=== PATIENT | female | born 1980 | race Caucasian/White ===

== ENCOUNTER 2017-01-06 14:19 | Emergency (ER) | payer OTHER ==
[2017-01-06 14:28] VITALS: BP 118/79
--- NOTE | 2017-01-06 14:39 | UC ---
Complaint Female HPI - HPI Summary HPI Summary: vag bleeding since last pm 01/05/17 after having her Mirena removed 01/03/17 by [facility] (who had placed it) because pt states she would like to become with her current partner. Pt states she has RLQ abd pain, and also is using a "tampon an hour" for the bleeding. Pt's partner is worried about possible infection. No urinary sxs. In addition pt has cough and nasal congestion and thinks she may have a sinus infection. 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 SO Hx Last Menstrual Period: unknown, IUD ?: No Onset/Duration: Sudden Onset, Lasting Hours, Still Present Severity Initially: Moderate Severity Currently: Severe Pain Intensity: 8 Pain Scale Used: 0-10 Numeric Character: Sharp Aggravating Factor(s): Nothing Alleviating Factor(s): Nothing Associated Signs And Symptoms: Positive: Vaginal Bleeding/Discharge - Allergies/Home Medications Allergies/Adverse Reactions: Allergies Allergy/AdvReac Type Severity Reaction Status Date / Time Amoxicillin Allergy Intermediate Hives Verified 01/06/17 14:28 Home Medications: Home Medications Fenofibrate [Lofibra] 160 mg PO DAILY 01/06/17 [History Confirmed 01/06/17] Prazosin CAP* [Minipress CAP*] 5 mg PO BEDTIME 01/06/17 [History Confirmed 01/06] Venlafaxine EXT RELEASE CAP* [Effexor Xr CAP*] 225 mg PO DAILY 01/06/17 [ History Confirmed 01/06/17] PMH/Surg Hx/FS Hx/Imm Hx Previously Healthy: Yes Endocrine History Of: Denies: Diabetes, Thyroid Disease, Hyperthyroidism, Hypothyroidism, Dyslipidemia Cardiovascular History Of: Denies: Cardiac Disorders, Hypertension, Pacemaker/ICD, Myocardial Infarction , Congestive Heart Failure, Atrial Fibrillation, Deep Vein Thrombosis, Bleeding Disorders Respiratory History Of: Denies: COPD, Asthma, Bronchitis, Pneumonia, Pulmonary Embolism GI/ History Of: Denies: Gastroesophageal Reflux, Ulcer, Gastrointestinal Bleed, Gall Bladder Disease, Kidney Stones, Diverticulitis, Renal Disease, Urosepsis Neurological History Of: Denies: TIA, CVA, Dementia, Seizures, Migraine Psychological History Of: Denies: Anxiety, Depression, Bipolar Disorder, Schizophrenia, Post Traumatic Stress Disorder Cancer History Of: Denies: Lung Cancer, Colorectal Cancer, Breast Cancer, Prostate Cancer, Cervical Cancer Other History Of: Negative For: HIV, Hepatitis B, Hepatitis C, Anticoagulant Therapy - Surgical History Surgical History: None - Family History Known Family History: Positive: Hypertension, Other - no PMH of bleeding disorders Family History: no family history of cardiac or clotting or genetic disorders - Social History Alcohol Use: None Substance Use Type: None Smoking Status (MU): Heavy Every Day Tobacco Smoker Type: Cigarettes Amount Used/How Often: 1 1/2 pack daily Have You Smoked in the Last Year: Yes Household Exposure Type: Cigarettes Review of Systems Constitutional: Negative Skin: Negative Eyes: Negative ENT: Negative Respiratory: Negative Cardiovascular: Negative Gastrointestinal: Negative Genitourinary: Other - vag bleeding Motor: Negative Neurovascular: Negative Musculoskeletal: Negative Neurological: Negative Psychological: Negative All Other Systems Reviewed And Are Negative: Yes Physical Exam Triage Information Reviewed: Yes Appearance: Well-Appearing, Pain Distress, Thin Vital Signs: Initial Vital Signs Temp 98.7 F 01/06/17 14:23 Pulse 97 01/06/17 14:23 Resp 16 01/06/17 14:23 BP 118/79 01/06/17 14:23 Pulse Ox 98 01/06/17 14:23 Vital Signs Reviewed: Yes Eyes: Positive: Conjunctiva Clear ENT: Positive: Normal ENT inspection, Pharyngeal erythema Neck: Positive: Supple Respiratory: Positive: Lungs clear, Normal breath sounds, No respiratory distress Cardiovascular: Positive: RRR, No Murmur, Pulses Normal, Brisk Capillary Refill Abdomen Description: Positive: No Organomegaly, Soft, McBurney's Point Tenderness. Negative: Nontender, Bruit, Distended, Guarding, Peritoneal Signs Bowel Sounds: Positive: Present Musculoskeletal: Positive: Strength Intact, ROM Intact Psychological Exam: Normal Skin Exam: Normal Complaint Female Dx - Course Course Of Treatment: Pt with abd pain and vag bleeding s/p mirena removal on . Pt needs higher level of care to determine cause of bleeding and pain. Pt and partner agree to go to [facility] by private car and sign AMA form. - Differential Dx/Diagnosis Differential Diagnosis/HQI/PQRI: Cervicitis, Pelvic Inflammatory Disease, , Sexually Transmitted Disease, Other - dysfunctional uterine bleeding Provider Diagnoses: vaginal bleeding s/p Mirena removal. acute cough Discharge - Discharge Plan Condition: Stable Disposition: AGAINST MEDICAL ADVICE Discharge Disposition Comment: discussed with Dr. Archibald [facility], accepts pt
== END 2017-01-06 15:15 | disposition left against medical advice (07) ==
LOC: UCCORT 14:19
DX: N93.9 Abnormal uterine and vaginal bleeding, unspecified (principal); R05 Cough
CPT/HCPCS: 99213; G0463

== ENCOUNTER 2018-05-12 12:44 | Emergency (ER) | payer OTHER ==
--- OUTSIDE RECORDS SUMMARY | 2018-05-12 12:59 | XMS REPORT | Continuity of Care Document ---
:1980 External Reference #:[id number] Author Name Aydee Esquivel, JASON Address [address] [place] [id number] Care Team Providers Name Role Phone Rosa May PA Primary Care Physician Unavailable Payers Type Date Identification Numbers Payment Provider Subscriber Effective: Policy Number: [id number] [facility] TARSHA Monaco 2018 PayID: [id number] [address] [place] [address] Policy Number: [id number] Medicaid -Jacobus Alyse Monaco PayID: [id number] [address] [place] [address] Advance Directives Description No Information Available Problems Description No Active Problems Family History Date Family Member(s) Problem(s) Comments Father Alive Father No Current Problems Mother Alive Mother No Current Problems Social History Type Date Description Comments Sex Female Education Highest level completed, 12th grade Marital Status Legal Status: Tobacco Use Start: Unknown Never Smoked Cigars Tobacco Use Start: Unknown Never Smoked A Pipe Tobacco Use Start: Unknown Never Used Smokeless Tobacco ETOH Use Denies alcohol use Tobacco Use Start: Unknown Heavy tobacco smoker (more than 10 cigarettes/day) Recreational Drug Use Denies Drug Use only marijuana Recreational Drug Use Teaching provided regarding Naloxone/Narcan Training Available At [facility] Tattoo/Piercing Tattoos professionally done UNKNOWN Never E-Cigarette user Allergies, Adverse Reactions, Alerts Date Description Reaction Status Severity Comments 05/09/2018 Amoxicillin Active Medications Medication Date Status Form Strength Qnty SIG Indications Ordering Provider Flagyl 05/09/20 Active Tablets 500mg 4tabs four tabs A59.01 Aydee Bustillo 18 by mouth Alvin, x 1 dose 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 05/09/2018 [facility] WBC Smear few Clue Cells Vag Fluid Wet Prep 0 Beth Wet Prep 0 Lactobacillus Wet Prep few Whiff Wet Prep + Bacteria Wet Prep n/a PH Wet Prep 7.5 Misc Other Test motile trich se Laboratory test finding 05/09/2018 [facility] Trichomonas positive Procedures Description No Information Available Encounters Description No Information Available Plan of Treatment 05/09/2018 - Aydee Esquivel, NPA59.01 Trichomonal vulvovaginitisNew Medication: Flagyl 500 mg - four tabs by mouth x 1 doseComments:You have an infection call trichomonas. Take the antibiotics ( metronidazole) that were sent to the pharmacy for you today. No ETOH with abx. Instruct all partner in the last month to make an appointment for evaluation. Abstain from ic for at least one week after you and partners are treated. Use condoms consistently to prevent STDs.Follow up:prn any concerns. Otherwise f/u with you PCP when annual is due.Z30.09 Encounter for other general counseling and advice on contracComments: Discussion regarding contraception choices. Patient is not interested in starting any bc today.She states that she would be happy to become . Reviewed with patient that she is at risk of and should avoid tobacco , alcohol and drugs. Instructed her to start a daily vitamin with folic acid.Z11.3 Encounter for screening for infections with a predominantlyComments: Reviewed STD risks and prevention with patient. Patient states understanding.
[2018-05-12 13:35] VITALS: BP 125/78
--- NOTE | 2018-05-12 14:42 | UC ---
Neck Pain HPI - HPI Summary HPI Summary: C/O possible thyroid enlargement since last week. With some pain. [place] feverish yesterday. Sore throat and cough with congestion. Some sinus pain. - History of Current Complaint Chief Complaint: UCGeneralIllness Stated Complaint: LUMP LEFT SIDE THROAT,COUGH Time Seen by Provider: 05/12/18 14:33 Hx Obtained From: Patient Hx Last Menstrual Period: 05/07/18 ?: No Onset/Duration Of Injury/Symptoms: Weeks - 1 Mechanism Of Injury: No Known Trauma Timing: Constant Onset/Duration: Gradual Onset Severity: Moderate Pain Intensity: 8 Location: Discrete At: - left anterior cervical triangle. Character: Sharp Aggravating Factors: Other: - Swollowing and eating. Alleviating Factors: Nothing Associated Signs & Symptoms: Positive: Swelling, Fever - Allergies/Home Medications Allergies/Adverse Reactions: Allergies Allergy/AdvReac Type Severity Reaction Status Date / Time amoxicillin Allergy Hives Verified 05/12/18 13:31 PMH/Surg Hx/FS Hx/Imm Hx Neurological History: Migraine Other History Of: Negative For: HIV, Hepatitis B, Hepatitis C, Anticoagulant Therapy - Surgical History Surgical History: None - Family History Known Family History: Positive: Hypertension, Other - no PMH of bleeding disorders Negative: Diabetes Family History: no family history of cardiac or clotting or genetic disorders - Social History Occupation: Employed Full-time Lives: With Family Alcohol Use: None Substance Use Type: None Smoking Status (MU): Heavy Every Day Tobacco Smoker Type: Cigarettes Amount Used/How Often: ~1 PPD Length of Time of Smoking/Using Tobacco: Since Age 15 Have You Smoked in the Last Year: Yes Household Exposure Type: Cigarettes Review Of Systems Constitutional: Positive: Fever ENT: Positive: Sore Throat, Sinus Pain/Tenderness Respiratory: Positive: Shortness Of Breath, Cough Neurological: Positive: Headache All Other Systems Reviewed And Are Negative: Yes Physical Exam Triage Information Reviewed: Yes Appearance: No Pain Distress, Well-Nourished, Ill-Appearing Vital Signs: Initial Vital Signs Temp 98.4 F 05/12/18 13:30 Pulse 76 05/12/18 13:30 Resp 16 05/12/18 13:30 BP 125/78 05/12/18 13:30 Pulse Ox 99 05/12/18 13:30 Vital Signs Reviewed: Yes Eyes: Positive: Conjunctiva Inflamed ENT: Positive: Pharynx normal, Nasal congestion - with allergic congestion, TMs normal Neck: Positive: Supple, Tenderness @ - left anterior cervical lymph nodes., Enlarged Nodes @ - left anterior cervical lymph nodes. Respiratory: Positive: Wheezing - mild inspiratory wheezes and expiratory wheezes with coughing. Cardiovascular Exam: Normal Musculoskeletal Exam: Normal Neurological Exam: Normal Psychological Exam: Normal Skin Exam: Normal Neck Pain Course/Dx - Differential Dx/Diagnosis Differential Dx/HQI/PQRI: Adenitis, Sprain, Strain Provider Diagnoses: Acute URI. Acute bronchospasm. Acute sinusitis. Allergic rhinitis Discharge - Sign-Out/Discharge Documenting (check all that apply): Patient Departure All imaging exams completed and their final reports reviewed: No Studies - Discharge Plan Condition: Stable Disposition: HOME Prescriptions: Cholecalciferol (Vitamin D3) [Vitamin D3] 15,000 unit PO WEEKLY #30 capsule DOXYcycline CAP(*) [DOXYcycline 100MG CAP(*)] 100 mg PO BID #20 cap Magnesium Oxide TAB* [MagOx 400 TAB*] 400 mg PO DAILY #30 tab predniSONE TAB* [Deltasone 20 MG TAB*] 20 mg PO DAILY #18 tab Patient Education Materials: Bronchospasm (ED), Prednisone (By mouth), Sinusitis (ED), Doxycycline (By mouth), Allergic Rhinitis (ED) Referrals: Rosa May PA [Primary Care Provider] - Additional Instructions: Smoking Cessation Tricks. 1. Cut down by 1 cigarette per day every 2-3 days. Write the number of smokes for that day on the calendar. 2. Identify triggers to smoking: after meals, on the phone, in the car, with coffee, on breaks at work, etc. 3. Formulate a plan with a behavior to replace the smoking. Fireballs in the car , doodle pad on the phone, flavored creamer for the coffee, go for a walk after a meal or on break at work. 4. For stress smokes do deep breathing relaxation. Breath deep in through the nose hold the breath in for a few seconds then breath out slowly through the mouth. NEILMED SINUS RINSE: CHECK OUT AT [employer] Saline nasal wash helps with mucous, allergies and congestion. It can be used up to twice a day or only as needed. Use lukewarm tap water. It does not have to be sterilized or distilled water. Do 1/3 on each side and snort out of both nostrils. Repeat the process with 1/6 of the bottle on each side with snorting in between to finish the solution in the bottle - Billing Disposition and Condition Condition: STABLE Disposition: Home
== END 2018-05-12 15:14 | disposition home or self-care (01) ==
LOC: UCCORT 12:44
DX: J06.9 Acute upper respiratory infection, unspecified (principal); J98.01 Acute bronchospasm; J01.90 Acute sinusitis, unspecified; J31.0 Chronic rhinitis; Z88.0 Allergy status to penicillin; F17.210 Nicotine dependence, cigarettes, uncomplicated
CPT/HCPCS: 99212; G0463

== ENCOUNTER 2019-03-28 09:10 | Emergency (ER) | payer OTHER ==
[2019-03-28 09:27] VITALS: BP 123/74
--- NOTE | 2019-03-28 09:30 | UC ---
Abdominal Pain Female HPI - HPI Summary HPI Summary: 38-year-old female presents with abdominal complaint.Pain to right side back just below the rib cage. Started late last night. Pt states she is urinating a lot but does not have any UTI symptoms. Difficult to take a deep breath. Denies any injury. 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 Last menstrual cycle 3 weeks ago. No nausea vomiting or diarrhea. Exertion worsens symptoms. Rest improves symptoms. Patient did try ibuprofen with minimal relief. Pain she states with movement can be up to a 9 out of 10. No fevers chills or chest pain. Pain is worsened with palpation of the area. Denies urinary complaints - History of Current Complaint Chief Complaint: UCGeneralIllness Stated Complaint: RT SIDE PAIN-HURTS TO BREATHE Time Seen by Provider: 03/28/19 09:28 Hx Obtained From: Patient Hx Last Menstrual Period: March 07 Onset/Duration: Sudden Onset Timing: Constant Pain Intensity: 9 Allergies/Adverse Reactions: Allergies Allergy/AdvReac Type Severity Reaction Status Date / Time amoxicillin Allergy Hives Verified 03/28/19 09:27 PMH/Surg Hx/FS Hx/Imm Hx Previously Healthy: Yes Other History Of: Negative For: HIV, Hepatitis B, Hepatitis C, Anticoagulant Therapy - Surgical History Surgical History: None - Family History Known Family History: Positive: Hypertension, Other - no PMH of bleeding disorders Negative: Diabetes Family History: no family history of cardiac or clotting or genetic disorders - Social History Alcohol Use: None Substance Use Type: None Smoking Status (MU): Heavy Every Day Tobacco Smoker Type: Cigarettes Amount Used/How Often: 1/2 ppd Length of Time of Smoking/Using Tobacco: Since Age 15 Have You Smoked in the Last Year: Yes Household Exposure Type: Cigarettes Review of Systems All Other Systems Reviewed And Are Negative: Yes Gastrointestinal: Positive: Abdominal Pain Physical Exam Triage Information Reviewed: Yes Appearance: Well-Appearing, No Pain Distress, Well-Nourished Vital Signs: Initial Vital Signs Temp 98.5 F 03/28/19 09:21 Pulse 88 03/28/19 09:21 Resp 18 03/28/19 09:21 BP 123/74 03/28/19 09:21 Pulse Ox 99 03/28/19 09:21 Vital Signs Reviewed: Yes Eye Exam: Normal ENT Exam: Normal Dental Exam: Normal Neck exam: Normal Neck: Positive: 1 Respiratory Exam: Normal Cardiovascular Exam: Normal Abdomen Description: Negative: CVA Tenderness (R), CVA Tenderness (L) Musculoskeletal Exam: Normal Musculoskeletal: Positive: Strength Intact, ROM Intact Neurological Exam: Normal Psychological Exam: Normal Skin Exam: Normal Images Front/Back of Body, Lg ([place]): 1 - Tenderness to palpation in the right upper thoracic area. Just below the bra line. No rash. Abd Pain Female Course/Dx - Course Course Of Treatment: Patient with right upper interscapular thoracic back pain. Likely muscular strain. X-ray negative. Urinalysis negative. Symptoms worsened with movement. Treat as muscular spasm. Anti-inflammatories advised. Also muscle relaxer given when necessary. Note for work given. Return to urgent care if symptoms worsen. Follow up with PCP in 2 or 3 days. - Differential Dx/Diagnosis Differential Diagnosis: Appendicitis, Constipation, Diverticulitis, Ectopic , Irritable Bowel Syndrome, Ovarian Cyst, Pancreatitis, Urinary Tract Infection Provider Diagnosis: Thoracic back pain, Muscle spasm Discharge - Sign-Out/Discharge Documenting (check all that apply): Patient Departure All imaging exams completed and their final reports reviewed: Yes - Discharge Plan Condition: Good Disposition: HOME Prescriptions: Cyclobenzaprine TAB* [Flexeril 10 MG TAB*] 10 mg PO BID PRN #10 tab PRN Reason: Spasms Patient Education Materials: Back Pain (ED), Muscle Spasm (ED) Forms: *Work Release Referrals: Rosa May PA [Primary Care Provider] - 4 Days - Billing Disposition and Condition Condition: GOOD Disposition: Home
[2019-03-28] MEDS ORDERED: Acetaminophen TAB* 325 MG PO ONE (09:38)
== END 2019-03-28 10:14 | disposition home or self-care (01) ==
LOC: UCCORT 09:10
DX: M54.6 Pain in thoracic spine (principal); M62.830 Muscle spasm of back; F17.210 Nicotine dependence, cigarettes, uncomplicated
CPT/HCPCS: 81003; 99212; A9270-GY; G0463